=== PATIENT | female | born 1950 | race Caucasian/White ===

== ENCOUNTER 2017-07-21 12:34 | Day surgery (SDC) | payer BC ==
[2017-07-21] MEDS ORDERED: LR 1,000 ML IV ONE (12:45)
[2017-07-21 13:15] VITALS: PULSE 85
[2017-07-21] MEDS ORDERED: INDOMETHACIN 50 MG SUPP PR PRN (13:54)
--- NOTE | 2017-07-21 13:54 | PDGENHP ---
History & Physical Chief Complaint: subepithelial lesoin stomach History of Present Illness: 67 year old female presents for evaluation of a subepithelial lesion at the GEJ/cardia Pertinent Past, Social, Family History: pMHx: UC. FaMhx: UC Relevant Physical Exam: HEENT: anicteric. CV: RRR +s1s2. Lungs: CTAB. Abd; soft, nt, + bs Cardiorespiratory Assessment: ASA 2
[2017-07-21] MEDS ORDERED: PROPOFOL/EMULSION 500 MG/50 ML BOTTLE IV ONE (13:57)
[2017-07-21] MEDS ORDERED: NS 500 ML IV SCH (14:00)
[2017-07-21] MEDS ORDERED: NALOXONE HCL 0.4 MG/ML INJ IVP PRN (14:05)
[2017-07-21] MEDS ORDERED: ONDANSETRON 4 MG/2 ML VIAL IVP PRN (14:05)
[2017-07-21] MEDS ORDERED: fentaNYL 100 MCG/2 ML INJ IVP PRN (14:05)
[2017-07-21] MEDS ORDERED: ALBUTEROL 3 ML DEYVIAL IH PRN (14:05)
[2017-07-21] MEDS ORDERED: NS 500 ML IV PRN (14:05)
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
[2017-07-21] MEDS ORDERED: PROPOFOL 200 MG/20 ML VIAL ONE ×4 (14:17→14:56)
[2017-07-21 15:22] VITALS: TEMP 97.3
[2017-07-21 15:27] VITALS: O2SAT 93
--- NOTE | 2017-07-21 15:38 | POSTANESTH ---
Post Anesthetic Evaluation Cardiovascular Status: Normal, Stable Respiratory Status: Normal, Stable Level of Consciousness/Mental Status: Mildly Sleepy, Arousable Pain Control: Adequate, Prn Tx Ordered Nausea/Vomiting Control: Adequate, Prn Tx Ordered Complications Possibly Related to Anesthesia: None Noted
[2017-07-21 16:24] VITALS: BP 154/76
[2017-07-21 16:25] VITALS: RESP 12
--- NOTE | 2017-07-21 19:35 | GPN ---
[f rep st] PROCEDURE NOTE DATE OF PROCEDURE: 07/21/2017 PROCEDURE: Esophagogastroduodenoscopy with biopsy, endoscopic ultrasound with fine-needle aspiration . INDICATION: The patient is a 67-year-old female, who received an upper endoscopy and was found of a subepithelial lesion of the gastric cardia. She presents for further evaluation. CONSENT: Risks, benefits, alternatives of the procedure were discussed in great detail with the maria guadalupe ent. Risk of infection, bleeding, perforation, and sedation were discussed. All questions answered and informed consent obtained. MEDICATIONS: Propofol. Please see Anesthesia for details. ESTIMATED BLOOD LOSS: Insignificant. ESOPHAGOGASTRODUODENOSCOPY EXAMINATION: The Olympus upper endoscope was inserted in the mouth and ad vanced to the esophagus. The proximal, mid, and distal esophagus were normal in appearance. The stomach was entered and closely examined, including retroflexed views of angulus, cardia, and fun dus. The patient was noted to have a medium-sized hiatal hernia. In the cardia of the stomach, a la rge subepithelial lesion was seen which measured approximately 2.5 cm. After the exam, biopsies were taken and noted to be soft in nature. The mucosa of the antrum and body was erythematous in a patchy distribution, and biopsies were taken. The duodenal bulb was entered and 2 superficial ulcers were noted up to 3 mm. The second portion of the duodenum was normal in appearance. ENDOSCOPIC ULTRASOUND EXAMINATION: The Olympus linear echoendoscope was introduced in the mouth and advanced to the second portion of the duodenum. The esophagus, stomach, and duodenum were visualized endosonographically. Multiple attempts were made to visualize the lesion in the gastric cardia, but due to the stiff natur e of the scope, this was not possible. A mini probe was not available. The pancreas was carefully examined from the uncinate process to the tail, where the spleen was seen. Hyperechoic foci were noted throughout the pancreas. The pancreatic body had a 1.2 cm round lesion was noted. It is unsure whether this was a benign lymph node versus neuroendocrine tumor. Doppler was used to rule out intervening vessels. Two passes were made with the ColdWatt lesion. Cytology was present and saw some lymphocytes, but was unsure of the diagnosis. No obvious liver lesion was noted. No suspicious periportal, peripancreatic, or perigastric nodes were appreciated. IMPRESSION: 1. Suppurative lesion; in cardia of the stomach. Was very soft on probing, suspect lipoma versus ot her? Await biopsy results. Could not adequately visualize this lesion and may consider repeat proce dure with mini probe. 2. Hiatal hernia. 3. Gastritis, status post biopsy. 4. Duodenal ulcer, suspect secondary to prior biopsy sites. Recommend follow up on biopsy and FNA r esults. CT scan with IV and p.o. contrast. /[id number]/MODL
== END 2017-07-21 16:22 | disposition home or self-care (01) ==
LOC: FSGY 12:34
PROVIDERS: ATTEND Internal Medicine Gastroenterology
PROC: 0DB68ZX Excision of Stomach, Via Natural or Artificial Opening Endoscopic, Diagnostic (ICD-10-PCS; principal; 2017-07-21 14:30)
DX: K31.89 Other diseases of stomach and duodenum (principal); K44.9 Diaphragmatic hernia without obstruction or gangrene; K29.70 Gastritis, unspecified, without bleeding; K26.9 Duodenal ulcer, unspecified as acute or chronic, without hemorrhage or perforation
CPT/HCPCS: J2704

== ENCOUNTER → 2017-08-04 | Outpatient (CLI) | payer BC ==
[~2017-08-04] MED LIST: IOPAMIDOL (ISOVUE-300) 100 ML BTL ONE
== END ==
LOC: FIMAGING 09:51
PROVIDERS: ATTEND Internal Medicine Gastroenterology
DX: K76.0 Fatty (change of) liver, not elsewhere classified (principal); K80.20 Calculus of gallbladder without cholecystitis without obstruction
CPT/HCPCS: Q9967

== ENCOUNTER → 2017-08-20 | Outpatient (CLI) | payer BC | LOC: FIMAGING 10:07 | PROVIDERS: ATTEND Internal Medicine Endocrinology, Diabetes & Metabolism | DX: Z13.820 Encounter for screening for osteoporosis (principal); M85.89 Other specified disorders of bone density and structure, multiple sites ==

== ENCOUNTER 2017-09-22 07:15 | Observation (INO) | payer BC ==
[2018-01-12] MEDS ORDERED: ROPIVACAINE 0.2% 80 MG, EPINEPHrine 0.2 MG, KETOROLAC TROMETHAMINE 30 MG in SYRINGE 0 ML IU ONE (06:00)
[2018-01-12] MEDS ORDERED: LIDOCAINE 1% 2 ML INJ ONE (06:32)
[2018-01-12] MEDS ORDERED: DEXAMETHASONE 4 MG/ML VIAL IVP ONE (06:40)
[2018-01-12] MEDS ORDERED: FAMOTIDINE 20 MG TAB PO ONE (06:40)
[2018-01-12] MEDS ORDERED: CLINDAMYCIN 900 MG/DEXTROSE 50 ML IV ONE (06:40)
[2018-01-12] MEDS ORDERED: ACETAMINOPHEN 325 MG TAB PO ONE (06:40)
[2018-01-12] MEDS ORDERED: LR 1,000 ML IV ONE (06:41)
[2018-01-12] MEDS ORDERED: THROMBIN (BOVINE) 5,000 UNIT VIAL TP ONE (07:52)
[2018-01-12] MEDS ORDERED: CALCIUM CHLORIDE 1 GM/10 ML INJ ONE (07:53)
[2018-01-12] MEDS ORDERED: ceFAZolin 1 GM/5 ML SYR ONE (07:54)
--- NOTE | 2018-01-12 08:06 | PDHPUP ---
History & Physical Update H&P update statement: This history and physical update is based on an assessment of the patient which was completed after admission or registration (within 24 hours), but prior to the surgery/procedure. H&P update: H&P reviewed & patient examined, no change in patient's condition since H&P completed
[2018-01-12] MEDS ORDERED: MIDAZOLAM 2 MG/2 ML VIAL IVP ONE (08:13)
[2018-01-12] MEDS ORDERED: MIDAZOLAM 2 MG/2 ML VIAL ONE (08:14)
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
[2018-01-12] MEDS ORDERED: PROPOFOL/EMULSION 500 MG/50 ML BOTTLE IV ONE ×3 (08:22→10:08)
[2018-01-12] MEDS ORDERED: fentaNYL 100 MCG/2 ML INJ ONE ×2 (08:34→12:04)
[2018-01-12] MEDS ORDERED: DEXAMETHASONE 4 MG/ML VIAL ONE (09:11)
[2018-01-12] MEDS ORDERED: ONDANSETRON 4 MG/2 ML VIAL ONE (09:11)
[2018-01-12] MEDS ORDERED: ROPIVACAINE HCL 150 MG/30 ML INJ ONE (10:28)
--- NOTE | 2018-01-12 11:00 | POSTOPPROG ---
Post Op Note Date of Operation: 01/12/18 Surgeon: Emily Llamas Edge Molder: Mahsa Rogers PA-C Anesthesiologist: Dr. Tony House Anesthesia: Epidural Pre-op Diagnosis: right knee osteoarthritis Post-op Diagnosis: right knee osteoarthritis Indication: right knee pain Procedure: right TKA Inf/Abcess present in the surg proc area at time of surgery?: No EBL: Minimal Complications: none
[2018-01-12] MEDS ORDERED: POLYETHYLENE GLYCOL 3350 17 GM PKT PO PRN (11:02)
[2018-01-12] MEDS ORDERED: LACTULOSE 20 GM/30 ML UDCUP PO PRN (11:02)
[2018-01-12] MEDS ORDERED: ONDANSETRON DISINTEGRATING 4 MG TAB PO PRN (11:02)
[2018-01-12] MEDS ORDERED: BISACODYL 10 MG SUPP PR PRN (11:02)
[2018-01-12] MEDS ORDERED: diphenhydrAMINE 25 MG CAP PO PRN (11:02)
[2018-01-12] MEDS ORDERED: ONDANSETRON 4 MG/2 ML VIAL IVP PRN ×2 (11:02→12:03)
[2018-01-12] MEDS ORDERED: METOCLOPRAMIDE 10 MG/2 ML VIAL IVP PRN (11:02)
[2018-01-12] MEDS ORDERED: MAGNESIUM HYDROXIDE 30 ML UDCUP PO PRN (11:02)
[2018-01-12] MEDS ORDERED: PROMETHAZINE HCL 25 MG/ML INJ IVP PRN ×2 (11:02→12:03)
[2018-01-12] MEDS ORDERED: DIPHENOXYLATE/ATROPINE LOMOTIL 1 TAB PO PRN (11:02)
[2018-01-12] MEDS ORDERED: PROMETHAZINE HCL 25 MG SUPPR PR PRN (11:02)
--- NOTE | 2018-01-12 11:02 | SOAPPROG ---
SOAP Progress Note Assessment/Plan: Assessment/Plan: 67y/o female s/p right TKA - stable and doing well - orders as written - PT/OT - active care system for DVT prevention, ASA starts tomorrow - anticipate discharge tomorrow - call with issues or concerns 01/12/18 11:00 Subjective: No pain, doing ok Objective: Vital Signs Temp Pulse Resp BP Pulse Ox 36.6 C 70 16 150/71 H 96 01/12/18 06:46 01/12/18 08:14 01/12/18 08:14 01/12/18 08:14 01/12/18 08:14 VSS, waking from anesthesia, no distress EOMi, face symmetric incision clean, dressed ICD10 Worksheet Patient Problems: Problems Problem Status Onset Osteoarthritis Acute - ICD10 Problem Qualifiers (1) Osteoarthritis
--- NOTE | 2018-01-12 11:05 | POSTANESTH ---
Post Anesthetic Evaluation Cardiovascular Status: Normal, Stable Respiratory Status: Normal, Stable Level of Consciousness/Mental Status: Can Participate in Eval Pain Control: Adequate, Prn Tx Ordered Nausea/Vomiting Control: Adequate, Prn Tx Ordered Complications Possibly Related to Anesthesia: None Noted
[2018-01-12] MEDS ORDERED: LR 1,000 ML IV SCH (11:30)
[2018-01-12] MEDS ORDERED: NALOXONE HCL 0.4 MG/ML INJ IVP PRN (12:03)
[2018-01-12] MEDS ORDERED: oxyCODONE IR 5 MG TAB PO PRN (12:03)
[2018-01-12] MEDS ORDERED: MEPERIDINE 25 MG/0.5 ML AMP IVP PRN (12:03)
[2018-01-12] MEDS ORDERED: HYDROmorphONE/DILAUDID 2 MG/ML INJ IVP PRN (12:03)
[2018-01-12] MEDS ORDERED: HYDROCODONE/APAP 5/325 TAB PO PRN (12:03)
[2018-01-12] MEDS ORDERED: DIAZEPAM 5 MG/ML 1 ML SYR IVP PRN (12:03)
[2018-01-12] MEDS: ACETAMINOPHEN 325 MG TAB PO SCH ×4 (12:04→18:17)
[2018-01-12] MEDS: fentaNYL 100 MCG/2 ML INJ IVP PRN ×2 (12:19→12:20)
[2018-01-12] MEDS ORDERED: DIAZEPAM 5 MG/ML 1 ML SYR ONE (12:21)
--- NOTE | 2018-01-12 12:33 | ASMTCMCOM ---
CM Note CM Note Notes: Received a call from Jolynn at [facility], #[phone]. They are still planning on accepting for PT services if discharges on Friday. CM will send info via [employer] when available. CM spoke with this patient last week and confirmed she would like home care. Patient lives in [facility] and accepts patient's insurance. CM will follow. Plan: [facility], (PT) Date Signed: 01/12/2018 12:31 PM Electronically Signed By:Liliam Johnson RN
[2018-01-12] MEDS: oxyCODONE IR 5 MG TAB PO PRN ×3 (13:20→20:44)
[2018-01-12] MEDS: CYCLOBENZAPRINE 10 MG TAB PO PRN ×2 (13:35→21:54)
[2018-01-12] MEDS: ceFAZolin 2 GM/DEXTROSE 100 ML IV SCH ×2 (14:28→21:48)
[2018-01-12] MEDS: metFORMIN HCL 500 MG TAB PO SCH (18:18)
[2018-01-12] MEDS: SENNOSIDES/DOCUSATE SODIUM TAB PO SCH (20:44)
[2018-01-12] MEDS: FAMOTIDINE 20 MG TAB PO SCH (20:44)
[2018-01-13] MEDS: oxyCODONE IR 5 MG TAB PO PRN ×4 (02:42→12:59)
[2018-01-13] MEDS: ACETAMINOPHEN 325 MG TAB PO SCH ×2 (05:59→11:55)
[2018-01-13] MEDS: metFORMIN HCL 500 MG TAB PO SCH (08:51)
[2018-01-13] MEDS: SENNOSIDES/DOCUSATE SODIUM TAB PO SCH (08:52)
[2018-01-13] MEDS: FAMOTIDINE 20 MG TAB PO SCH (08:53)
[2018-01-13] MEDS ORDERED: FERROUS SULFATE 140 MG TAB.ER PO SCH (09:00)
[2018-01-13] MEDS ORDERED: MESALAMINE PO SCH (09:00)
[2018-01-13] MEDS ORDERED: ASPIRIN 325 MG TAB PO SCH (10:00)
[2018-01-13 11:32] VITALS: BP 136/74
--- NOTE | 2018-01-13 11:59 | SOAPPROG ---
SOAP Progress Note Assessment/Plan: Assessment/Plan: 67y/o female s/p right TKA POD#1 - stable and doing well - orders as written - PT/OT - active care system for DVT prevention, ASA - discharge home with [facility], return precautions discussed - call with issues or concerns 01/13/18 11:57 Subjective: Pain well controlled. Walking well. Feels ready to go home Objective: Vital Signs Temp Pulse Resp BP Pulse Ox 36.7 C 88 14 136/74 H 93 01/13/18 11:31 01/13/18 11:31 01/13/18 11:31 01/13/18 11:31 01/13/18 11:31 Laboratory Results 01/13/18 04:52 01/12/18 01/13/18 01/14/18 05:59 05:59 05:59 Intake Total 1545 350 Output Total 950 200 Balance 595 150 NAD, well appearing, no distress EOMi, face symmetric RLE neurovascularly intact knee extension lacking 5 degrees, flexion 80 incision CDI, no erythema or active drainage ICD10 Worksheet Patient Problems: Problems Problem Status Onset Osteoarthritis Acute - ICD10 Problem Qualifiers (1) Osteoarthritis
--- NOTE | 2018-01-13 12:03 | PDIAF ---
- Diagnosis Diagnosis: right knee osteoarthritis Code Status: Full Code - Medication Management Discharge Medications: Medications to Continue on Transfer celeCOXIB [Celebrex (*)] 200 mg PO DAILY #0 07/11/17 [Last Taken 07/19/17] metFORMIN HCL [Glucophage 500 mg (*)] 500 mg PO BIDMEAL #0 07/11/17 [Last Taken 07/20/17] Mesalamine [Apriso 0.375 gm] 1.5 gm PO DAILY 12/10/17 [Last Taken Unknown] sitaGLIPtin PHOSPHATE [Januvia 100 MG (*)] 100 mg PO DAILY 12/10/17 [Last Taken Unknown] Acetaminophen [Tylenol 325mg (*)] 650 mg PO Q6HRS tab 01/13/18 [Last Taken Unknown] Aspirin [Aspirin 325 mg (*)] 325 mg PO DAILY tab 01/13/18 [Last Taken Unknown] Ferrous Sulfate [Slow Fe 140 MG (*)] 140 mg PO DAILY tab.er 01/13/18 [Last Taken Unknown] oxyCODONE IR [Oxycodone Ir (*)] 5 - 10 mg PO Q3HRS PRN tab 01/13/18 [Last Taken Unknown] Discharge Medications: Refer to the Discharge Home Medication list for PRN reason. PICC Care - Routine: N/A - Orders Services needed: Home Care, Physical Therapy Home Care Face to Face: I certify that this patient was under my care and that I had the required [id number] encounter meeting the encounter requirements on the discharge day. My findings support the fact that the patient is homebound as defined in Home Care Face to Face Continued: CMS Chapter 7 Medicare Benefits Manual 30.1.1 , The condition of the patient is such that there exists a normal inability to leave home and consequently, leaving home would require a considerable and taxing effort. Diet Recommendation: no restrictions on diet Wound Care Instructions: keep incision clean and dry, will change dressing at post-operative visit Activity/Weight Bearing Restrictions: WBAT Additional Instructions: - WBAT - follow-up on 01/26 - Follow Up Care Current Providers and Referrals: Jaqui Torres MD [Primary Care Provider] -
--- NOTE | 2018-01-13 13:47 | ASMTLACE ---
LACE Length of stay for Answers: 2 days current admission Acuity / Level of Answers: No Care: Did the patient have an inpatient admission? Comorbidities - select Answers: Diabetes (uncontrolled or all that apply controlled) Opioid dependence / Chronic pain Other Notes: Hx of Seizures # of Emergency department Answers: 0 visits in the last 6 months Score: 8 Date Signed: 01/13/2018 01:46 PM Electronically Signed By:PABLO Raymond
--- NOTE | 2018-01-13 14:45 | ASMTCMCOM ---
CM Note CM Note Notes: Pt medically stable for d/c with [facility], orders sent in [employer]. Date Signed: 01/13/2018 02:45 PM Electronically Signed By:PABLO Raymond
--- NOTE | 2018-01-13 14:46 | ASDISCHSUM ---
Discharge Information Plan Status:Home with Home Health Medically Cleared to Leave: Discharge Date:01/13/2018 01:20 PM CM D/C Disposition: ADT [facility] Projected Discharge Date:01/13/2018 11:00 AM Transportation at D/C: Discharge Delay Reason: Follow-Up Date:01/13/2018 11:00 AM Discharge Slot: Final Diagnosis: Placement Information Referral Type:*Home Health Care Services Referral ID:[facility]-[id number] Provider Name:[facility] Address 1:[address] [facility] Address 2: City:[place] Selection Factors: State:[place] Patient Contact Information Contact Name:STACIE Relationship: Address:[address] City:[place] Alternate Phone: State/Zip Code:[place] [address] Email: Financial Information Financial Class:BCOP Primary Plan Desc:[facility] [employer] Primary Plan Number:[id number] Secondary Plan Desc: Secondary Plan Number: Assessment Information [facility] CM Progress Note CM Note CM Note Notes: Received a call from Jolynn at [facility], #[phone]. They are still planning on accepting for PT services if discharges on Friday. will send info via [employer] when available. NABEEL spoke with this patient last week and confirmed she would like home care. Patient lives in [facility] and accepts patient's insurance. NABEEL will follow. Plan: [facility], (PT) Date Signed: 01/12/2018 12:31 PM Electronically Signed By:Liliam Johnson RN LACE LACE Length of stay for Answers: 2 days current admission Acuity / Level of Answers: No Care: Did the patient have an inpatient admission? Comorbidities - select Answers: Diabetes (uncontrolled or all that apply controlled) Opioid dependence / Chronic pain Other Notes: Hx of Seizures # of Emergency department Answers: 0 visits in the last 6 months Score: 8 Date Signed: 01/13/2018 01:46 PM Electronically Signed By:PABLO Raymond [facility] CM Progress Note CM Note CM Note Notes: Pt medically stable for d/c with [facility], orders sent in [employer]. Date Signed: 01/13/2018 02:45 PM Electronically Signed By:PABLO Raymond Intervention Information
--- NOTE | 2018-01-15 12:52 | GOP ---
DATE OF OPERATION: 01/12/2018 SURGEON: Emily Llamas MD INSTRUCTOR LOOPING: Noris Rogers, TEREZA ANESTHESIA: General with spinal. PREOPERATIVE DIAGNOSIS: Severe osteoarthritis, right knee. POSTOPERATIVE DIAGNOSIS: Severe osteoarthritis, right knee. PROCEDURE PERFORMED: Right total knee arthroplasty. FINDINGS: Preoperative x-rays of the patient's right knee demonstrated severe osteoarthritis. At th e time of surgery, this finding was confirmed. The patient had complete loss of the articular cartil age in the patellofemoral compartment. In the lateral compartment. There was moderate loss in the m edial compartment. There were large osteophytes on the periphery of the lateral trochlea, as well as the patella. A cemented [employer] II total knee arthroplasty was performed. A size 4 right femoral component was cemented into place and a size 3 tibial base plate was utilized and xiomara ented into place. An 11 mm thick polyethylene insert was placed in the metal backing of the tibia. Following implantation of the components, the knee was taken through range of motion. The patient ac hieved full extension, 135 degrees of flexion. She was stable to varus and valgus stressing, both in extension and 30 degrees of flexion. The patella tracked well in the trochlear groove. ESTIMATED BLOOD LOSS: Less than 100 cc. DESCRIPTION OF PROCEDURE: The patient was taken the operating room, placed in supine position on the operating table. Following placement of a spinal block and induction of adequate general inhalation anesthesia, the knee was prepped and draped in the usual sterile manner. The patient received 2 g o f IV Ancef. The leg was elevated, exsanguinated, and tourniquet inflated to 275 mmHg. The [employer] le g torres was used throughout the procedure for positioning. A midline incision was made extending from 2 fingerbreadths above the superior pole of the patella di stally to the tibial tubercle. Incision was carried down through subcutaneous tissue to the retinacu lum of the knee. A medial parapatellar arthrotomy was performed and the patella was everted laterall y. The thickness of the patella was measured, and then, a 9 mm cut was taken from the patella. The cut surface was protected with a metal plate and the patella was placed in the lateral gutter. Next, the femoral drill hole was made for intramedullary referencing on the distal femoral cut. The cutting block was positioned and pinned, and then, a 0 cut was taken from the distal femur. The cutt ing block was removed, and then, the femur was sized. A size 4 stem femoral component was felt to be the best fit, so the size 4 cutting block was placed on the distal femur, and the anterior posterior and chamfer cuts were made. The notch was cleared with a reamer, followed by the box osteotome. Our attention was then turned to the tibia. The tibia was retracted anteriorly and again intramedull ute referencing was utilized on the tibia. The intramedullary guide was inserted through a central m idline drill hole. The tibial block was positioned and pinned, and then, the tibial cut was made. T he knee was extended and the flexion, extension gaps were checked and symmetrical. The medial and la teral meniscus were removed, and the posterior capsule was released along the back of the tibia. The knee was then flexed up and sized and a size 3 tibial component was pinned into place. The femoral component was reinserted, and then, the 10 and 11 mm thick polyethylene were trialed. The best fit w as with the 11 mm polyethylene. The knee was taken through range of motion and achieved excellent mo tion and good stability. The patella was prepared with the patellar clamp and a drill. The patellar tracking was then checked . The trial components removed, except for the tibial base plate, and then, the keel punch was utili zed. The trial tibia was removed and all the bony surfaces were thoroughly irrigated and dried and t he cement was mixed. The tibial component was cemented first, followed by the femur and then patella . All excess cement was removed from around the edges of the components using a [place] elevator. The knee was brought into extension and held while the cement hardened. Once the cement was hard, the k nee was flexed up, and the trial polyethylene was removed and the 11 mm thick cross-linked polyethyle ne insert was opened and inserted. The posterior capsule was injected with joint cocktail. The wound was thoroughly irrigated and again the range of motion and stability were checked. The ret inaculum of the knee was then closed using #2 FiberWire in a [id number] fashion. The subcutaneo us tissues were closed using 2-0 Vicryl and the skin was closed using rama. The deep and superfic ial portions of the wound were injected with platelet gel to enhance wound healing. Sterile dressing s were applied. The patient tolerated the procedure well and. There were no complications. Estimat ed blood loss minimal. Final sponge, needle counts were correct. The patient was transported to the recovery room in good condition. /[id number]/MODL
--- NOTE | 2018-01-16 14:28 | GDS ---
ADMISSION DIAGNOSIS: Right knee osteoarthritis. DISCHARGE DIAGNOSIS: Right knee osteoarthritis. HOSPITAL COURSE: The patient is a pleasant 67-year-old female who is well known to our service for o ngoing right knee pain and severe osteoarthritis. After careful decision-making and discussion, she elected to proceed forth with a right total knee arthroplasty. This surgery was done by Dr. Emily ross on January 12, 2018. The patient tolerated the procedure well without complication and was transferred to the PACU after the operation was complete. She continued to do well and progress, an d was transferred to the floor when PACU criteria was met. There, she worked with Physical Therapy a nd Occupational Therapy. Her pain was well managed. She was ambulating well and made great progress and was ready for discharge home with home health care on January 13, 2018. She was given strict instructions for followup on January 26, 2018, sooner with any issues or changes. She was sent home w [facility], physical therapy. All of her questions were answered prior to discharge home. /[id number]/MODL
== END 2018-01-13 13:20 | disposition home health service (06) ==
LOC: F3N 01-12 06:12
PROVIDERS: ADMIT Orthopaedic Surgery; ATTEND Orthopaedic Surgery
PROC: 0SRC069 Replacement of Right Knee Joint with Oxidized Zirconium on Polyethylene Synthetic Substitute, Cemented, Open Approach (ICD-10-PCS; principal; 2018-01-12 08:15)
DX: M17.11 Unilateral primary osteoarthritis, right knee (principal); E11.9 Type 2 diabetes mellitus without complications; K75.9 Inflammatory liver disease, unspecified; G40.909 Epilepsy, unspecified, not intractable, without status epilepticus; Z88.0 Allergy status to penicillin; Z87.891 Personal history of nicotine dependence
CPT/HCPCS: 27447; 73560; 97110; 97116; 97161; 97166; 97530; 97535; G0378; C1713; J0171; J0690; J1100; J1885; J2250; J2405; J2704; J2795; J3010; J3360